=== PATIENT | female | born 1975 | race American Indian/Alaskan Native ===

== ENCOUNTER 2021-03-02 08:00 | Outpatient (CLI) | payer OTHER | END 2021-03-02 08:30 | disposition home or self-care (01) | LOC: PPH VACUNA 08:00 | PROVIDERS: ATTEND Emergency Medicine Pediatric Emergency Medicine | DX: Z23 Encounter for immunization (principal) ==

== ENCOUNTER 2022-02-01 08:42 | Outpatient (CLI) | payer OTHER | END 2022-02-01 08:52 | disposition home or self-care (01) | LOC: PPH VACUNA 08:42 | PROVIDERS: ATTEND Emergency Medicine Pediatric Emergency Medicine | DX: Z23 Encounter for immunization (principal) ==